=== PATIENT | male | born 1970 | race Caucasian/White ===

== ENCOUNTER 2017-07-17 20:28 | Emergency (ER) | payer BC ==
[2017-07-17] MEDS ORDERED: KETOROLAC 30 MG/1 ML SDV IVP ONE (20:44)
[2017-07-17] MEDS ORDERED: ONDANSETRON 4 MG/2 ML VIAL IVP ONE (20:44)
[2017-07-17] MEDS ORDERED: NS 1,000 ML IV ONE ×2 (20:44→22:03)
[2017-07-17] MEDS ORDERED: HYDROmorphONE/DILAUDID 2 MG/ML INJ IVP ONE (20:44)
--- NOTE | 2017-07-17 20:46 | EDPHY ---
H & P Stated Complaint: R FLANK PAIN/POS KIDNEY STONE Time Seen by Provider: 07/17/17 20:41 HPI/ROS: CHIEF COMPLAINT: Right flank pain HISTORY OF PRESENT ILLNESS: The patient is a 46-year-old man who comes to the emergency department complaining of right flank pain. He did states that it was sudden and intense and comes in waves. He presented to the urgent care for years ago and they thought that it was a muscle spasm. At that time his symptoms had resolved and he returned home. Once he returned home he had another severe episode and began vomiting. He states that he still having pain now. No fevers. No significant past medical or surgical history. REVIEW OF SYSTEMS: Constitutional: denies: chills, fever, recent illness, recent injury EENTM: denies: blurred vision, double vision, nose congestion Respiratory: denies: cough, shortness of breath Cardiac: denies: chest pain, irregular heart rate, lightheadedness, palpitations Gastrointestinal/Abdominal: See HPI Genitourinary: denies: dysuria, frequency, hematuria, pain Musculoskeletal: See HPI Skin: denies: lesions, rash, jaundice, bruising Neurological: denies: headache, numbness, paresthesia, tingling, dizziness, weakness Hematologic/Lymphatic: denies: blood clots, easy bleeding, easy bruising Immunologic/allergic: denies: HIV/AIDS, transplant EXAM: GENERAL: Well-appearing, well-nourished and in no acute distress. HEAD: Atraumatic, normocephalic. EYES: Pupils equal round and reactive to light, extraocular movements intact, sclera anicteric, conjunctiva are normal. ENT: TMs normal, nares patent, oropharynx clear without exudates. Moist mucous membranes. NECK: Normal range of motion, supple without lymphadenopathy or JVD. LUNGS: Breath sounds clear to auscultation bilaterally and equal. No wheezes rales or rhonchi. HEART: Regular rate and rhythm without murmurs, rubs or gallops. ABDOMEN: Soft, nontender, normoactive bowel sounds. No guarding, no rebound. No masses appreciated. BACK: No CVA tenderness, no spinal tenderness, step-offs or deformities EXTREMITIES: Normal range of motion, no pitting or edema. No clubbing or cyanosis. NEUROLOGICAL: Cranial nerves II through XII grossly intact. Normal speech, normal gait. 5/5 strength, normal movement in all extremities, normal sensation PSYCH: Normal mood, normal affect. SKIN: Warm, dry, normal turgor, no visible rashes or lesions. Source: Patient Exam Limitations: No limitations - Personal History Current Tetanus Diphtheria and Acellular Pertussis (TDAP): Yes - Medical/Surgical History Hx Asthma: No Hx Chronic Respiratory Disease: No Hx Diabetes: No Hx Cardiac Disease: No Hx Renal Disease: No Hx Cirrhosis: No Hx Alcoholism: No Hx HIV/AIDS: No Hx Splenectomy or Spleen Trauma: No Other PMH: DENIES - Family History Significant Family History: No pertinent family hx - Social History Smoking Status: Never smoked Alcohol Use: Sober Drug Use: None Constitutional: Initial Vital Signs Temperature (C) 36.8 C 07/17/17 20:36 Heart Rate 46 L 07/17/17 20:36 Respiratory Rate 16 07/17/17 20:36 Blood Pressure 123/79 H 07/17/17 20:36 O2 Sat (%) 96 07/17/17 20:36 O2 Delivery Mode Room Air Allergies/Adverse Reactions: No Known Allergies Allergy (Unverified 07/17/17 20:36) Home Medications: Medication Instructions Recorded Ketorolac Tromethamine 10 mg PO Q6H PRN #16 tab 07/17/17 Ondansetron Odt [Zofran Odt 4 mg 4 mg PO Q4 PRN #20 tab 07/17/17 (RX)] Tamsulosin HCl [Flomax] 0.4 mg PO DAILY #10 cap 07/17/17 oxyCODONE/APAP 5/325 [Percocet 1 - 2 tab PO Q4H PRN #14 tab 07/17/17 5/325] Medical Decision Making ED Course/Re-evaluation: 9:[address] p[address]. we discussed the CT results. The patient's pain is currently controlled. I will continue to hydrate him and had Flomax. I will page Urology. 9:55 p.m. I discussed the case with Dr. Macedo who will follow up with the patient Thursday or Thursday. He agrees with the plan thus far. Differential Diagnosis: Partial list of the Differential diagnosis considered include but were not limited to; kidney stone, pyelonephritis and although unlikely based on the history and physical exam, I also considered appendicitis. I discussed these differential diagnoses and the plan with the patient as well as the usual and expected course. The patient understands that the diagnosis is provisional and that in medicine we are not always correct and that further workup is often warranted. Usual and customary warnings were given. All of the patient's questions were answered. The patient was instructed to return to the emergency department should the symptoms at all worsen or return, otherwise to followup with the physician as we discussed. - Data Points Laboratory Results: Laboratory Results 07/17/17 21:00 07/17/17 21:00 Medications Given: Discontinued Medications Hydromorphone HCl (Dilaudid) 1 mg IVP EDNOW ONE Stop: 07/17/17 20:45 Last Admin: 07/17/17 20:57 Dose: 1 mg Sodium Chloride (Ns) 1,000 mls @ 0 mls/hr IV EDNOW ONE; Wide Open PRN Reason: Protocol Stop: 07/17/17 20:45 Last Admin: 07/17/17 20:56 Dose: 1,000 mls Sodium Chloride (Ns) 1,000 mls @ 0 mls/hr IV ONCE ONE PRN Reason: Wide Open Stop: 07/17/17 22:04 Last Admin: 07/17/17 22:03 Dose: 1,000 mls Ketorolac Tromethamine (Toradol) 15 mg IVP EDNOW ONE Stop: 07/17/17 20:45 Last Admin: 07/17/17 20:59 Dose: 15 mg Ondansetron HCl (Zofran) 4 mg IVP EDNOW ONE Stop: 07/17/17 20:45 Last Admin: 07/17/17 20:56 Dose: 4 mg Tamsulosin HCl (Flomax) 0.4 mg PO EDNOW ONE Stop: 07/17/17 21:57 Last Admin: 07/17/17 22:00 Dose: 0.4 mg Departure - Departure Disposition: Home, Routine, Self-Care Clinical Impression: Kidney stone on right side Condition: Good Instructions: Kidney Stones (ED) Referrals: NONE *PRIMARY CARE P,. [Primary Care Provider] - As per Instructions Kellee Gonzales MD [Medical Doctor] - As per Instructions Prescriptions: Ketorolac Tromethamine 10 mg PO Q6H PRN #16 tab PRN Reason: Pain/inflammation Ondansetron Odt [Zofran Odt 4 mg (RX)] 4 mg PO Q4 PRN #20 tab PRN Reason: Nausea & Vomiting oxyCODONE/APAP 5/325 [Percocet 5/325] 1 - 2 tab PO Q4H PRN #14 tab PRN Reason: Pain, Severe Tamsulosin HCl [Flomax] 0.4 mg PO DAILY #10 cap
[2017-07-17 21:10] LABS: PLATELET COUNT 277 10^3/uL (150-400)
[2017-07-17 21:53] VITALS: BP 112/69
[2017-07-17] MEDS ORDERED: TAMSULOSIN HCL 0.4 MG CAP PO ONE (21:56)
== END 2017-07-17 22:59 | disposition home or self-care (01) ==
DX: N20.0 Calculus of kidney (principal); E86.9 Volume depletion, unspecified
CPT/HCPCS: 96374; J1170; J1885; J2405

== ENCOUNTER → 2017-07-21 | Outpatient (CLI) | payer BC | LOC: FLAB 15:04 | PROVIDERS: ATTEND Specialist | DX: N20.1 Calculus of ureter (principal) ==